=== PATIENT | female | born 1965 | race Caucasian/White ===

== ENCOUNTER 2023-05-31 11:55 | Outpatient (RCR) | payer OTHER, SELFPAY | END 2023-05-31 23:59 | disposition home or self-care (01) | LOC: ROT 11:55 | PROVIDERS: ATTENDING PHYSICIAN Orthopaedic Surgery; FAMILY PHYSICIAN Physician Assistant | DX: M79.642 Pain in left hand (principal); Z73.6 Limitation of activities due to disability | CPT/HCPCS: 97010; 97140; 97166; 97535; 97760 ==